=== PATIENT | female | born 1965 | race Caucasian/White ===

== ENCOUNTER 2017-03-30 21:54 | Emergency (ER) | payer OTHER ==
[~2017-03-30] VITALS: Ht 170.2 cm; Wt 124.5 kg
[2017-03-30 21:57] VITALS: BP 146/79; TEMP 98.1
[2017-03-30] MEDS ORDERED: PRINIVIL10 MG PO (22:14)
[2017-03-30] MEDS ORDERED: HYGROTON 2525 MG/TAB PO (22:14)
[2017-03-30] MEDS ORDERED: PRED FORTE 1 ML1 ML (22:15)
[2017-03-30 22:40] LABS: BASO % 0.4 % (0.0-2.0); EOS # 0.1 (0.0-0.7); EOS % 1.3 % (0-4.0); GRAN # 4.6 (1.4-6.5); GRAN % 50.4 % (42.2-75.2); HEMATOCRIT 39.2 % (37.0-47.0); LYMPH # 3.6 (1.2-3.4); LYMPH % 38.5 % (20.0-51.0); MEAN CELL VOLUME 88 fl (80.0-100.0); MEAN CORPUSCULAR HEMOGLOBIN 29 pg (27.0-31.0); MEAN CORPUSCULAR HGB CONC 33 g/dl (33.0-37.0); MEAN PLATELET VOLUME 9.5 fl (7.4-10.4); MONO # 0.8 (0.1-0.6); MONO % 9.1 % (1.7-9.3); PLATELET COUNT 219 K/mm3 (130-400); RED BLOOD COUNT 4.45 M/mm3 (4.10-5.30); REDCELL DISTRIBUTION WIDTH-CV 12.8 % (11.5-14.5); WHITE BLOOD COUNT 9.2 K/mm3 (4.8-10.8)
[2017-03-30 22:47] LABS: PROTHROMBIN TIME 11.5 SECONDS (9.7-12.8)
[2017-03-30 22:50] LABS: PARTIAL THROMBOPLASTIN TIME 27.7 SECONDS (26.0-37.0)
[2017-03-30 22:51] LABS: ADJUSTED CALCIUM 8.7 mg/dL (8.4-10.2); ALBUMIN 4.2 gm/dL (3.5-5.0); BILIRUBIN,TOTAL 0.6 mg/dL (0.0-1.0); C-REACTIVE PROTEIN 0.6 mg/dL (0.0-0.9); CALCIUM 8.9 mg/dL (8.4-10.2); CREATININE, serum 0.89 mg/dL (0.52-1.25); POTASSIUM 3.7 mmol/L (3.4-5.0); TOTAL PROTEIN 7.7 gm/dL (6.4-8.2)
[2017-03-30 23:10] LABS: ERYTHROCYTE SEDIMENTATION RATE 11 mm/hr (0-30)
[2017-03-30] MEDS ORDERED: NORCO 325 MG-51 TAB PO (23:19)
[2017-03-30 23:29] VITALS: PULSE 88
== END 2017-03-30 23:30 | disposition home or self-care (01) ==
LOC: COL.ER 21:54
PROVIDERS: Emergency Medicine
DX: M17.12 Unilateral primary osteoarthritis, left knee (principal); I10 Essential (primary) hypertension; Z94.7 Corneal transplant status; Z87.74 Personal history of (corrected) congenital malformations of heart and circulatory system

== ENCOUNTER → 2018-03-15 | Outpatient (CLI) | payer OTHER ==
[~2018-03-15] MED LIST: HYGROTON 2525 MG/TAB PO; NORCO 325 MG-51 TAB PO; PRED FORTE 1 ML1 ML; PRINIVIL10 MG PO
== END ==
LOC: MC.RAD 07:00
DX: Z12.31 Encounter for screening mammogram for malignant neoplasm of breast (principal)

== ENCOUNTER → 2018-05-23 | Outpatient (CLI) | payer OTHER ==
[~2018-05-23] MED LIST changes: +PRIL40 PO; +ZOFRAN 4MG T4 MG/TAB PO
== END ==
LOC: COL.LAB 19:20
DX: K29.80 Duodenitis without bleeding (principal)

== ENCOUNTER → 2019-04-18 | Outpatient (CLI) | payer OTHER | LOC: MC.RAD 10:51 | DX: Z12.31 Encounter for screening mammogram for malignant neoplasm of breast (principal) ==

== ENCOUNTER 2020-12-23 15:02 | Emergency (ER) | payer OTHER ==
[~2020-12-23] VITALS: Ht 170.2 cm; Wt 130.9 kg
[2020-12-23 15:10] VITALS: TEMP 98
[2020-12-23 15:51] LABS: BASO % 0.4 % (0.0-2.0); EOS # 0.1 (0.0-0.7); EOS % 0.9 % (0-4.0); GRAN # 4.8 (1.4-6.5); GRAN % 58.9 % (42.2-75.2); HEMATOCRIT 41.7 % (37.0-47.0); HEMOGLOBIN 13.7 g/dl (12.5-16.0); LYMPH # 2.2 (1.2-3.4); LYMPH % 27.5 % (20.0-51.0); MEAN CELL VOLUME 88 fl (80.0-100.0); MEAN CORPUSCULAR HEMOGLOBIN 29 pg (27.0-31.0); MEAN CORPUSCULAR HGB CONC 33 g/dl (33.0-37.0); MONO % 12.1 % (1.7-9.3); PLATELET COUNT 181 K/mm3 (130-400); RED BLOOD COUNT 4.74 M/mm3 (4.10-5.30); REDCELL DISTRIBUTION WIDTH-CV 13.4 % (11.5-14.5)
[2020-12-23 16:09] LABS: ALANINE AMINOTRANSFERASE 36 U/L (4-34); ALBUMIN 4.5 gm/dL (3.5-5.0); ALKALINE PHOSPHATASE 106 U/L (50-136); ANION GAP 10 mmol/L (7-16); AST,SGOT 32 U/L (15-37); BILIRUBIN,TOTAL 0.5 mg/dL (0.0-1.0); BLOOD UREA NITROGEN 23 mg/dL (7-17); CALCIUM 9.8 mg/dL (8.4-10.2); CARBON DIOXIDE 27 mmol/L (22-30); CHLORIDE 99 mmol/L (98-107); GLUCOSE 117 mg/dL (74-106); LIPASE 54 U/L (23-300); POTASSIUM 3.4 mmol/L (3.4-5.0); SODIUM 136 mmol/L (137-145); TOTAL PROTEIN 8.1 gm/dL (6.4-8.2)
[2020-12-23 16:27] LABS: TROPONIN-I < 0.012 ng/mL (0.000-0.035)
[2020-12-23 18:46] VITALS: BP 148/89; PULSE 85
== END 2020-12-23 17:57 | disposition home or self-care (01) ==
LOC: COL.ER 15:02
PROVIDERS: Emergency Medicine
DX: R07.89 Other chest pain (principal); R53.83 Other fatigue; R53.81 Other malaise; M79.604 Pain in right leg; M79.605 Pain in left leg; I10 Essential (primary) hypertension
CPT/HCPCS: J1650; Q9967

== ENCOUNTER → 2020-12-25 | Outpatient (CLI) | payer OTHER | LOC: COL.VAS 08:35 | DX: M79.606 Pain in leg, unspecified (principal); R79.1 Abnormal coagulation profile ==

== ENCOUNTER 2023-11-07 14:16 | Emergency (ER) | payer OTHER ==
[~2023-11-07] VITALS: Ht 170.2 cm; Wt 129.5 kg
[2023-11-07 14:21] VITALS: TEMP 98.4
[2023-11-07 14:56] LABS: BASO % 0.2 % (0.0-2.0); GRAN # 10.6 K/mm3 (1.4-6.5); GRAN % 71.2 % (42.2-75.2); HEMATOCRIT 43.1 % (37.0-47.0); HEMOGLOBIN 14.3 g/dl (12.5-16.0); LYMPH # 3.3 K/mm3 (1.2-3.4); LYMPH % 21.9 % (20.0-51.0); MEAN CELL VOLUME 87 fl (80.0-100.0); MEAN CORPUSCULAR HEMOGLOBIN 29 pg (27-31); MEAN CORPUSCULAR HGB CONC 33 g/dl (33.0-37.0); MEAN PLATELET VOLUME 9.8 fl (7.4-10.4); MONO % 6.4 % (1.7-9.3); PLATELET COUNT 233 K/mm3 (130-400); RED BLOOD COUNT 4.97 M/mm3 (4.10-5.30); REDCELL DISTRIBUTION WIDTH-CV 13.6 % (11.5-14.5)
[2023-11-07] MEDS ORDERED: Ondansetron 4 MG/2 ML VIAL IV ONE ×2 (15:00→16:30)
[2023-11-07] MEDS ORDERED: NS 1,000 ML IV ONE (15:00)
[2023-11-07] MEDS ORDERED: Morphine 4 MG/ML VIAL IV ONE (15:00)
[2023-11-07 15:11] LABS: ALBUMIN 4.1 gm/dL (3.5-5.0); BILIRUBIN,TOTAL 0.6 mg/dL (0.2-1.2); CALCIUM 9.8 mg/dL (8.4-10.2); CREATININE, serum 1.11 mg/dL (0.57-1.11); POTASSIUM 3.2 mmol/L (3.5-4.5); TOTAL PROTEIN 8.1 gm/dL (6.2-8.1)
[2023-11-07] MEDS ORDERED: Iohexol 300 - 100 ML VIAL IV ONE (15:33)
[2023-11-07] MEDS ORDERED: NS 100 ML IV SCH (15:37)
[2023-11-07] MEDS ORDERED: Ketorolac 30 MG/ML VIAL IV ONE (16:30)
[2023-11-07] MEDS ORDERED: PERCOCET 325 MG1 TA2 PO (17:03)
[2023-11-07] MEDS ORDERED: ZOFRAN 4MG T4 MG/TAB PO (17:03)
[2023-11-07 17:09] VITALS: BP 131/67; PULSE 70
[2023-11-07] MEDS ORDERED: Home Ondansetron ODT 4 MG #2 ODT/PACK PO ONE (17:15)
[2023-11-07] MEDS ORDERED: Home oxyCODONE/Acetaminophen 5/325 MG #4 TAB/PACK PO ONE (17:15)
== END 2023-11-07 17:19 | disposition home or self-care (01) ==
LOC: COL.ER 14:16
PROVIDERS: Physician Assistant
DX: K85.90 Acute pancreatitis without necrosis or infection, unspecified (principal); R74.8 Abnormal levels of other serum enzymes
CPT/HCPCS: J1885; J2270; J2405; J7030; Q9967

== ENCOUNTER 2023-11-09 12:10 | Inpatient (IN) | payer OTHER ==
[~2023-11-09] VITALS: Ht 170.2 cm; Wt 121.0 kg
[~2023-11-09 12:10] MED LIST changes: +PERCOCET 325 MG1 TA2 PO
--- NOTE | 2023-11-09 12:20 | NUR ---
pt arrived as a direct admit from PCP, at bedside. vss. pt reports pain is "tolerable" at the moment. med rec and admission assessment complete. pt denies nausea but has a decreased appetite. INT started to right hand. pt denies needs at this time. pt oriented to room and call light in reach.
[2023-11-09 12:21] VITALS: BP 121/66; PULSE 105; TEMP 98
[2023-11-09] MEDS ORDERED: ASPIRIN 81M81 MG/TA2 PO (12:26)
[2023-11-09] MEDS ORDERED: VIVLODEX10 MG PO (12:27)
[2023-11-09] MEDS ORDERED: PRAVACHOL10 MG PO (12:29)
[2023-11-09 15:03] LABS: BASO % 0.2 % (0.0-2.0); EOS % 0.1 % (0.0-4.0); GRAN # 10.6 K/mm3 (1.4-6.5); GRAN % 80.5 % (42.2-75.2); HEMOGLOBIN 12.7 g/dl (12.5-16.0); LYMPH # 1.5 K/mm3 (1.2-3.4); LYMPH % 11.7 % (20.0-51.0); MEAN CELL VOLUME 85 fl (80.0-100.0); MEAN CORPUSCULAR HEMOGLOBIN 29 pg (27-31); MEAN CORPUSCULAR HGB CONC 34 g/dl (33.0-37.0); MEAN PLATELET VOLUME 9.5 fl (7.4-10.4); MONO # 0.9 K/mm3 (0.1-0.6); MONO % 7.1 % (1.7-9.3); PLATELET COUNT 198 K/mm3 (130-400); RED BLOOD COUNT 4.35 M/mm3 (4.10-5.30); REDCELL DISTRIBUTION WIDTH-CV 13.2 % (11.5-14.5)
[2023-11-09 15:17] LABS: ALBUMIN 3.3 gm/dL (3.5-5.0); BILIRUBIN,TOTAL 0.7 mg/dL (0.2-1.2); CALCIUM 9.3 mg/dL (8.4-10.2); CREATININE, serum 0.9 mg/dL (0.57-1.11); POTASSIUM 3.2 mmol/L (3.5-4.5); TOTAL PROTEIN 7.3 gm/dL (6.2-8.1)
[2023-11-09 16:03] VITALS: BP 127/51; PULSE 78; TEMP 98.2
--- NOTE | 2023-11-09 16:21 | NUR ---
pt off floor for CT scan
[2023-11-09 16:39] VITALS: BP_SYST 127
--- NOTE | 2023-11-09 17:00 | NUR ---
pt back in room from CT, reports pain is tolerable. pt given ice chips per dr orders.
[2023-11-09 20:00] VITALS: BP 127/58; PULSE 85; TEMP 99.2
--- NOTE | 2023-11-09 20:00 | NUR ---
UPON SHIFT ASSESSMENT, NATALIA WAS UP IN BED AND LOOKED DISTRESSED. PAIN ASSESSMENT DONE AND SHE COMPLAINS OF 7/10 ABDOMINAL PAIN. OFFERED PRN MORPHINE WHICH SHE ACCEPTED RELUCTANTLY STATING, "IT MAKES ME FEEL DISCONNECT,WIERD." AND ASKED THAT NEXT TIME, SHE GET SOMETHING ELSE. OPTIONS WERE LISTED AND ADVISED THAT CALL TO HOSPITALIST WOULD BE PLACED. ABDOMEN IS SOFT AND BOWEL SOUNDS ARE HYPOACTIVE IN UPPER QUADRANTS. SHE STATES SHE HAS BEEN ABLE TO HAVE A BOWEL MOVEMENT, BURP AND VOID BUT CANNOT PASS GAS. VA ARE WNL. CALL LIGHT WITHIN REACH.
[2023-11-09 21:00] VITALS: BP_SYST 114
--- NOTE | 2023-11-09 21:00 | NUR ---
CALL PLACED TO HOSPITALIST TO BIGG PRN MORPHINE. TORB FOR FENTANYL 12.5MCG GIVEN.
--- NOTE | 2023-11-09 21:45 | NUR ---
CALL PLACED TO HOSPITALIST. JANETTE WAS OBSERVED HAVING LABORED BREATHING WITH APNEIC PERIODS OF 5 SECONDS AND VS WERE BP 87 SYSTOLIC, PULSE 70, TEMP 97.5 AND 02 88% ON 4L. JANETTE IS HARD TO AROUSE ALL THOUGH HE IS AXO TO PERSON, PLACE AND TIME. TORB GIVEN TO BOLUS LR AND PLACE BIPAP.
--- NOTE | 2023-11-09 22:00 | NUR ---
STAYED WITH PATIENT WHEN ADMINISTERING FENTANYL SHE HAS NEVER HAD THIS MED BEFORE. VS AFTER 10 MINS WERE WNL. PATIENT TOLERATED WELL.
[2023-11-09 23:08] VITALS: BP 114/60; PULSE 79; TEMP 99.7
[2023-11-10] VITALS (12 sets, daily range): BP systolic 108–141; BP diastolic 57–72; PULSE 84–87; TEMP 98.1–99.2
[2023-11-10 07:35] LABS: CALCIUM 9.2 mg/dL (8.4-10.2); CREATININE, serum 0.79 mg/dL (0.57-1.11); POTASSIUM 3.2 mmol/L (3.5-4.5)
[2023-11-10 07:58] LABS: BASO % 0.3 % (0.0-2.0); EOS # 0.1 K/mm3 (0.0-0.7); EOS % 0.9 % (0.0-4.0); GRAN # 8.7 K/mm3 (1.4-6.5); GRAN % 74.5 % (42.2-75.2); HEMOGLOBIN 12.4 g/dl (12.5-16.0); LYMPH # 1.8 K/mm3 (1.2-3.4); LYMPH % 15.5 % (20.0-51.0); MEAN CELL VOLUME 85 fl (80.0-100.0); MEAN CORPUSCULAR HEMOGLOBIN 29 pg (27-31); MEAN CORPUSCULAR HGB CONC 34 g/dl (33.0-37.0); MONO % 8.5 % (1.7-9.3); PLATELET COUNT 134 K/mm3 (130-400); RED BLOOD COUNT 4.27 M/mm3 (4.10-5.30); REDCELL DISTRIBUTION WIDTH-CV 13.2 % (11.5-14.5)
[2023-11-10 08:01] LABS: HEMATOCRIT 36.2 % (37.0-47.0)
--- NOTE | 2023-11-10 08:16 | NUR ---
Patient awake, alert and oriented. C/O abdominal pain, 8-07/04. States the fentanyl is not effective in managing her pain, will discuss with hospitalist. NPO. Resting in bed, bed in lowest position with call light within reach. Denies further needs at this time.
--- NOTE | 2023-11-10 09:56 | NUR ---
Initial visit; Patient thanked [employer] for looking in on her and offering encouragement and prayer. Patient's present and also thanked [employer] for visit and keeping Jes in [employer]'s prayers.
[2023-11-10] MEDS ORDERED: MOBIC 7.5MG7.5 MG PO (13:38)
[2023-11-10] MEDS ORDERED: CRESTOR20 MG PO (13:38)
--- NOTE | 2023-11-10 17:13 | NUR ---
group worker met with patient and her , Ayaan, P# [phone] to discuss discharge planning. PCP is Dr. Peacock, [facility] with no issues affording medications. Insurance is [facility]. Patient did not have a DPOA-HC but requested one to be completed. SW assisted patient with the form, patient appointed her as primary and Isacc Jesus as secondary. No DME and reports to be indpendent with AD[facility]. Patient is able to drive or her can drive her to appointments. Patient would like to return home at time of discharge. Discharge Plan: Home
--- NOTE | 2023-11-10 18:14 | NUR ---
Pain improving, managed well with new pain medication regimen. Tolerating broth and jello well, denies nausea or worsening pain after eating. Encouraged continued PO intake.
[2023-11-11 01:00] VITALS: BP_SYST 129
--- NOTE | 2023-11-11 01:04 | NUR ---
UPON SHIFT ASSESSMENT, NATALIA WAS UP IN BED SURROUNDED BY FAMILY. SHE IS PLESANT AND AXO X 4. BOWEL SOUNDS ARE PRESENT IN ALL QUADRANTS AND NATALIA COMPLAINS OF NO ABDOMINAL PAIN AT THIS TIME. VS ARE WNL AND CALL LIGHT WITHIN REACH
[2023-11-11 04:00] VITALS: BP 129/58; PULSE 73; TEMP 97.9
[2023-11-11 05:00] VITALS: BP_SYST 129
[2023-11-11 07:19] VITALS: BP 124/56; PULSE 73; TEMP 98
[2023-11-11] MEDS ORDERED: PROTONIX 40MG T40 MG PO (09:10)
[2023-11-11 09:21] VITALS: BP_SYST 124
[2023-11-11 09:29] LABS: BASO % 0.2 % (0.0-2.0); EOS # 0.2 K/mm3 (0.0-0.7); EOS % 2.8 % (0.0-4.0); GRAN # 5.3 K/mm3 (1.4-6.5); GRAN % 64.7 % (42.2-75.2); HEMOGLOBIN 11.8 g/dl (12.5-16.0); LYMPH # 1.9 K/mm3 (1.2-3.4); LYMPH % 22.4 % (20.0-51.0); MEAN CELL VOLUME 87 fl (80.0-100.0); MEAN CORPUSCULAR HEMOGLOBIN 29 pg (27-31); MEAN CORPUSCULAR HGB CONC 33 g/dl (33.0-37.0); MEAN PLATELET VOLUME 10.8 fl (7.4-10.4); MONO # 0.8 K/mm3 (0.1-0.6); MONO % 9.8 % (1.7-9.3); PLATELET COUNT 139 K/mm3 (130-400); RED BLOOD COUNT 4.13 M/mm3 (4.10-5.30); REDCELL DISTRIBUTION WIDTH-CV 13.2 % (11.5-14.5)
[2023-11-11 09:49] LABS: CALCIUM 9.2 mg/dL (8.4-10.2); CREATININE, serum 0.82 mg/dL (0.57-1.11); POTASSIUM 3.5 mmol/L (3.5-4.5)
--- NOTE | 2023-11-11 11:00 | NUR ---
Discharge instructions discussed with patient including follow-up appointments, medication changes, and clear liquid diet. Discussed diet with pancreatitis as well as signs of increased infection. Patient verbalized understanding. IV discontinued to right hand with no complications. No telemetry present. Patient escorted out by staff and via wheelchair.
== END 2023-11-11 11:02 | disposition home or self-care (01) | DRG 440 ==
LOC: MEDICAL 12:10
PROVIDERS: Physician Assistant; ADMIT Internal Medicine
DX: K85.90 Acute pancreatitis without necrosis or infection, unspecified (principal); I10 Essential (primary) hypertension; M19.90 Unspecified osteoarthritis, unspecified site; E87.6 Hypokalemia; E78.5 Hyperlipidemia, unspecified; Z79.82 Long term (current) use of aspirin; Z79.899 Other long term (current) drug therapy; Z23 Encounter for immunization
CPT/HCPCS: J1650; J2270; J2405; J3010; J3480; J7030; Q9967